=== PATIENT | female | born 2000 | race Two or more races ===

== ENCOUNTER 2025-01-02 15:26 | Emergency (ER) | payer MEDICAID, SELFPAY ==
[2025-01-02 15:27] VITALS: BMI 40.2
[2025-01-02 16:06] VITALS: BP 126/86; PULSE 70; RESP 18; TEMP 37; O2SAT 99
--- NOTE | 2025-01-02 16:33 | EKG_ITS ---
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
--- NOTE | 2025-01-02 16:34 | PD.EDCHEST ---
ED Chest Pain RME/HPI General Chief Complaint: Chest Pain Stated Complaint: Chest pain, left arm tingling since last night Time Seen by Provider: 01/02/25 15:35 Source: patient Arrival date/time: 01/02/25 15:26 24-year-old female with no known medical history presents to the emergency room with a chief complaint of 8 out of 10 sternal chest pain that radiates down her left arm that began yesterday at 9 PM. Mode of arrival: ambulatory Limitations: no limitations Related Data Previous Rx's ?Medication ?Instructions ?Recorded diphenhydramine HCl 25 mg tablet 50 mg (2 x 25 mg) PO Q6H PRN 09/25/22 (Benadryl Allergy) allergy symptoms #30 tabs Allergies Allergy/AdvReac Type Severity Reaction Status Date / Time No Known Allergies Allergy Verified 09/24/22 08:47 Review of Systems Review of Systems Systems Reviewed: All systems reviewed, normal except as documented Constitutional Constitutional: Reports system reviewed and no additional complaints, except as documented, Denies fatigue, Denies fever(s), Denies headache(s) and Denies weakness Eyes Eyes: Reports system reviewed and no additional complaints, except as documented, Denies blurry vision and Denies change in vision ENT Ears, Nose, Mouth, and Throat: Reports system reviewed and no additional complaints, except as documented, Denies otalgia, Denies headache(s), Denies nasal congestion, Denies throat swelling and Denies vertigo Cardiovascular Cardiovascular: Reports system reviewed and no additional complaints, except as documented, Reports chest pain, Reports chest pain at rest, Reports dyspnea and Denies dyspnea on exertion Respiratory Respiratory: Reports system reviewed and no additional complaints, except as documented, Denies chest congestion, Denies cough, Reports dyspnea, Denies dyspnea on exertion and Denies wheezing Gastrointestinal Gastrointestinal: Reports system reviewed and no additional complaints, except as documented, Denies abdominal pain, Denies cramping, Denies nausea and Denies vomiting Genitourinary Genitourinary: Reports system reviewed and no additional complaints, except as documented Musculoskeletal Musculoskeletal: Reports system reviewed and no additional complaints, except as documented and Denies back pain Integumentary/Breasts Skin/Breast: Reports system reviewed and no additional complaints, except as documented and Denies wounds Neurologic Neurologic: Reports system reviewed and no additional complaints, except as documented, Denies confusion, Denies headache(s), Denies lack of coordination, Denies vertigo and Denies weakness Psychiatric Psychiatric: Reports system reviewed and no additional complaints, except as documented, Denies anxiety, Denies confusion, Denies depression, Denies paranoia, Denies suicidal ideation and Denies tactile hallucinations Endocrine Endocrine: Reports system reviewed and no additional complaints, except as documented and Denies fatigue Hematologic/Lymphatic Hematologic/Lymphatic: Reports system reviewed and no additional complaints, except as documented and Denies lymphadenopathy Allergic/Immunologic Allergic/Immunologic: Reports system reviewed and no additional complaints, except as documented, Denies throat swelling, Denies urticaria and Denies wheezing ED Exam General Limitations: Present no limitations General appearance: Present alert and in no apparent distress Head Head exam: Present atraumatic Eye Eye exam: Present normal appearance, PERRL and EOMI ENT ENT exam: Present normal exam, normal oropharynx and mucous membranes moist Neck Neck exam: Present normal inspection, full ROM and trachea midline Chest Chest inspection: Present normal inspection and symmetric chest wall rise Respiratory Respiratory exam: Present normal lung sounds bilaterally Cardiovascular Cardiovascular exam: Present regular rate, normal rhythm, normal heart sounds, +S1 and +S2; Absent bradycardia, tachycardia, irregular rhythm, systolic murmur, diastolic murmur, rubs, gallop, clicks or JVD Abdominal Exam Abdominal exam: Present soft and normal bowel sounds Extremities Exam Extremities exam: Present normal inspection and full ROM Back Exam Back exam: Present normal inspection and full ROM Neurological Exam Neurological exam: Present alert, oriented X3 and CN II-XII intact Psychiatric Psychiatric exam: Present normal affect and normal mood Skin Skin exam: Present warm, dry, intact and normal color Course Orders Category Date Time Status EKG (ED ONLY) *Do not use* NOW Care 01/02/25 16:33 Ordered EKG (ED Only) Stat Exams 01/02/25 16:33 Ordered B-Type Natriuretic Peptide Stat Lab 01/02/25 16:33 Ordered CBC Stat Lab 01/02/25 16:33 Ordered Comprehensive Metabolic Panel Stat Lab 01/02/25 16:33 Ordered Troponin I Stat Lab 01/02/25 16:33 Ordered Vital Signs Vital signs: Vital Signs Temperature 98.6 F 01/02/25 16:06 Pulse Rate 70 01/02/25 16:06 Respiratory Rate 18 01/02/25 16:06 Blood Pressure 126/86 H 01/02/25 16:06 Pulse Oximetry (%) 99 01/02/25 16:06 Oxygen Delivery Method Room Air 01/02/25 16:06 Chest Pain MDM Narrative MDM Narrative:: 24-year-old female with no known medical history presents to the emergency room with a chief complaint of 8 out of 10 sternal chest pain that radiates down her left arm that began yesterday at 9 PM. Discharge Plan Prescriptions/Referrals Prescriptions/Med Rec: No Action diphenhydramine HCl [Benadryl Allergy] 25 mg tablet 50 mg PO Q6H PRN (Reason: allergy symptoms) Qty: 30 0RF Patient/Caregiver Discharge Instructions Print Language: Maori
[2025-01-02 17:32] LABS: Basophils # (Auto) 0.1 Thou/mm3 (0.0-0.2); Basophils % (Auto) 1 % (0-2.5); Eosinophils # (Auto) 0.1 Thou/mm3 (0.0-0.5); Eosinophils % (Auto) 2 % (0-10); Hematocrit 40.1 % (36.0-46.0); Hemoglobin 13.5 g/dL (12.0-16.0); Immature Granulocytes % (Auto) 0 % (0-0); Immature Granulocytes Auto 0.03 Thou/mm3 (0.00-0.00); Lymphocytes # (Auto) 2.2 Thou/mm3 (1.0-4.8); Lymphocytes % (Auto) 25 % (10-50); Mean Corpuscular HGB Conc 33.7 g/dl (31.0-37.0); Mean Corpuscular Hemoglobin 28.2 pg (25.0-35.0); Mean Corpuscular Volume 84 fL (80-100); Monocytes # (Auto) 0.5 Thou/mm3 (0.0-0.8); Monocytes % (Auto) 6 % (0-12); Neutrophils # (Auto) 5.8 Thou/mm3 (1.8-7.7); Neutrophils % (Auto) 67 % (37-80); Nucleated Red Blood Cell % 0 /100 WBC (0); Platelet Count 255 Thou/mm3 (140-440); RDW Standard Deviation 39.5 fL (36.4-46.3); Red Blood Count 4.79 Miln/mm3 (4.00-5.20); White Blood Count 8.7 Thou/mm3 (3.6-11.0)
[2025-01-02 17:57] LABS: B-Type Natriuretic Peptide < 20 pg/mL (0-100)
[2025-01-02 18:00] LABS: Alanine Aminotransferase 16 U/L (10-49); Albumin, Serum 4.9 gm/dL (3.5-5.0); Alkaline Phosphatase 94 U/L (46-116); Anion Gap 8 (7-16); Aspartate Amino Transferase 21 U/L (0-34); BUN/Creatinine Ratio 9 Ratio (12-20); Bilirubin,Total 0.4 mg/dL (0.3-1.2); Blood Urea Nitrogen 6 mg/dL (9-23); Calcium 9.6 mg/dL (8.3-10.6); Calcium (Corrected) 9.6 mg/dL (8.5-10.1); Carbon Dioxide 25.3 mMol/L (20.0-31.0); Chloride 108 mMol/L (98-107); Creatinine (Component) 0.7 mg/dL (0.6-1.3); Estimated Creatinine Clearance 139.3 mL/min (>60); Globulin 2.5 gm/dL (2.3-3.5); Glucose 85 mg/dL (74-106); Osmolality,Calculated 277 (275-295); Potassium 4.1 mMol/L (3.4-5.1); Sodium 141 mMol/L (136-145); Total Protein 7.4 gm/dL (5.7-8.2); Troponin I < 0.002 ng/mL (0.0-0.045); eGFR > 60 See Note
--- NOTE | 2025-01-02 18:01 | PD.EDRME ---
Rapid Medical Screening Exam [facility] Arrival date/time: 01/02/25 15:26 24-year-old female with no known medical history presents to the emergency room with a chief complaint of 8 out of 10 sternal chest pain that radiates down her left arm that began yesterday at 9 PM. I have greeted and performed a focused initial assessment of this patient. A comprehensive ED assessment and evaluation of the patient, analysis of all test results, and completion of the medical decision making process will be conducted by additional ED providers. Chief Complaint: Chest Pain Time Seen by Provider: 01/02/25 15:35 Vital signs: Vital Signs Temperature 98.6 F 01/02/25 16:06 Pulse Rate 70 01/02/25 16:06 Respiratory Rate 18 01/02/25 16:06 Blood Pressure 126/86 H 01/02/25 16:06 Pulse Oximetry (%) 99 01/02/25 16:06 Oxygen Delivery Method Room Air 01/02/25 16:06 Vital signs reviewed by provider: Yes
--- NOTE | 2025-01-02 19:35 | PD.EDCHEST ---
ED Chest Pain RME/HPI General Chief Complaint: Chest Pain Stated Complaint: Chest pain, left arm tingling since last night Time Seen by Provider: 01/02/25 15:35 Arrival date/time: 01/02/25 15:26 RME / HPI RME / HPI narrative: 01/02/25 15:26 24-year-old female with no known medical history presents to the emergency room with a chief complaint of 8 out of 10 sternal chest pain that radiates down her left arm that began yesterday at 9 PM. I have greeted and performed a focused initial assessment of this patient. A comprehensive ED assessment and evaluation of the patient, analysis of all test results, and completion of the medical decision making process will be conducted by additional ED providers. DR CEDENO MAIN ED EVALUATION: 24 yo female patient c/o anterior chest pain radiating across her chest. Had some mild associated dyspnea while trying to sleep last night. Denies cough, nausea, sweats, fever. Did not try any medications. Noticed anterior chest wall soreness when in the shower this morning. Left work today to come for evaluation. No known cardiac history. Related Data Previous Rx's ?Medication ?Instructions ?Recorded diphenhydramine HCl 25 mg tablet 50 mg (2 x 25 mg) PO Q6H PRN 09/25/22 (Benadryl Allergy) allergy symptoms #30 tabs Allergies Allergy/AdvReac Type Severity Reaction Status Date / Time No Known Allergies Allergy Verified 09/24/22 08:47 Review of Systems Review of Systems Systems Reviewed: All systems reviewed, normal except as documented ED Exam Narrative Physical exam: GENERAL APPEARANCE: alert and oriented x 4, well-developed, well-nourished, no acute distress HEENT: Normocephalic, atraumatic; pupils equal, round, reactive to light; EOMI; mucous membranes pink, moist; oropharynx clear NECK: Supple LUNGS: CTABL; no wheezes, no rales, no rhonchi HEART: Regular rate, regular rhythm with occasional irregularity most consistent with PVC; normal S1, S2; no murmurs; minimal anterior chest wall tenderness ABDOMEN: non distended; normal BS; soft, no tenderness, no guarding, no rebound; no masses, no organomegaly, no hernia BACK: no CVA tenderness EXTREMITIES: atraumatic; no edema NEUROLOGIC: awake; alert and oriented x4; cranial nerves II-XII grossly intact; no focal sensory or motor deficits PSYCHIATRIC: appropriate mood and affect SKIN: warm, dry, normal color; no rashes Course Quality Measures none Orders Category Date Time Status EKG (ED ONLY) *Do not use* NOW Care 01/02/25 16:33 Completed EKG (ED Only) Stat Exams 01/02/25 16:33 Draft B-Type Natriuretic Peptide Stat Lab 01/02/25 17:03 Completed CBC Stat Lab 01/02/25 17:03 Completed Comprehensive Metabolic Panel Stat Lab 01/02/25 17:03 Completed Troponin I Stat Lab 01/02/25 17:03 Completed Ibuprofen Tab [Motrin Tab] Med 01/02/25 19:37 Once 600 mg PO X1 ONE Vital Signs Vital signs: Vital Signs Temperature 98.6 F 01/02/25 16:06 Pulse Rate 70 01/02/25 16:06 Respiratory Rate 18 01/02/25 16:06 Blood Pressure 126/86 H 01/02/25 16:06 Pulse Oximetry (%) 99 01/02/25 16:06 Oxygen Delivery Method Room Air 01/02/25 16:06 Chest Pain Patient data External records reviewed:: [facility] previous records Clinical information provided by:: patient Social determinants that could affect healthcare access:: none Patient has the following chronic illnesses:: none How is presenting disease/condition affected by chronic disease/condition?: no chronic disease Evaluation data The following diagnostics were reviewed and interpreted by me:: lab results, radiology exam(s) and EKG tracing(s) Lab and/or radiology exams considered but not ordered:: none Interpretation Summary: lab results and EKG within normal limits Medications / Prescriptions Medications or Prescriptions considered but not ordered:: none Medication administrations:: Medication Administration History Discontinued Medications Ibuprofen (Ibuprofen Tab 600 Mg Tablet) 600 mg PO X1 ONE Stop: 01/02/25 19:38 as above Consultations Consultation(s) initiated? (list below): No Diagnosis Chest Pain Differential Diagnosis: pneumothorax, stable angina, unstable angina pectoris, atypical chest pain, st elevation myocardial infarction and costochondritis Most likely diagnosis given after review of the tests above:: atypical chest pain Admission Indicated Admission indicated?: not indicated Admission Request Was there a request for admission?: No Disposition Plan Disposition Plan: Discharge Discharge Attestation Discharge Attestation: The patient and all family members were given an opportunity to ask questions and understood the discharge instructions. Discharge instructions specifically effects, indications for sooner follow up or return to the emergency department, and the expected course of current diagnosis. Patient condition: Stable Discharge Plan Plan Patient Disposition: HOME (Self Care) Prescriptions/Referrals Prescriptions/Med Rec: No Action diphenhydramine HCl [Benadryl Allergy] 25 mg tablet 50 mg PO Q6H PRN (Reason: allergy symptoms) Qty: 30 0RF Referrals: No Primary/Family,Physician [Primary Care Provider] - In 1 week Problem List Clinical Impression: Atypical chest pain Patient/Caregiver Discharge Instructions Education Materials: ED Chest Pain, Uncertain Cause Print Language: Portuguese Stand Alone Forms: [employer] Award Info., Work/School Release, Patient Portal Info Letter
[2025-01-02] MEDS: IBUPROFEN TAB 600 MG TABLET PO (19:45)
== END 2025-01-02 20:06 | disposition home or self-care (01) ==
PROVIDERS: Nurse Practitioner Family; Emergency Provider Emergency Medicine
DX: R07.89 Other chest pain (principal)
CPT/HCPCS: 36415; 80053; 83880; 84484; 85025; 93005; 99283; A9270

== ENCOUNTER 2025-04-29 09:22 | Emergency (ER) | payer MEDICAID, SELFPAY ==
[2025-04-29 09:53] VITALS: BP 122/75; PULSE 67; RESP 18; TEMP 37.2; O2SAT 97; BMI 40.2
--- NOTE | 2025-04-29 10:09 | PD.EDUPEX ---
Upper Extremity Injury RME/HPI General Chief Complaint: Extremity Injury, Upper Stated Complaint: Right shoulder pain X 3 days Time Seen by Provider: 04/29/25 09:51 Arrival date/time: 04/29/25 09:22 This is a 24-year-old female that comes into the emergency room with complaints of low right lateral neck pain some posterior shoulder pain to the right side. Patient denies any trauma. Patient denies any numbness tingling. Patient denies any other symptoms. Patient states she thought she slept wrong but it continued for 3 days so she wanted to be evaluated. Patient denies any past medical history. Related Data Previous Rx's ?Medication ?Instructions ?Recorded diphenhydramine HCl 25 mg tablet 50 mg (2 x 25 mg) PO Q6H PRN 09/25/22 (Benadryl Allergy) allergy symptoms #30 tabs cyclobenzaprine 10 mg tablet 10 mg PO TID PRN muscle spasm #14 04/29/25 tabs ibuprofen 800 mg tablet 800 mg PO Q6H PRN pain #14 tabs 04/29/25 Allergies Allergy/AdvReac Type Severity Reaction Status Date / Time No Known Allergies Allergy Verified 04/29/25 09:27 Course Vital Signs Vital signs: Vital Signs Temperature 99.0 F 04/29/25 09:53 Pulse Rate 67 04/29/25 09:53 Respiratory Rate 18 04/29/25 09:53 Blood Pressure 122/75 04/29/25 09:53 Pulse Oximetry (%) 97 04/29/25 09:53 Oxygen Delivery Method Room Air 04/29/25 09:53 Extremity Injury MDM Narrative MDM Narrative:: Patient took ibuprofen prior to arrival. Will treat with Tylenol and Flexeril. Will treat for muscle tension. Patient told to follow-up with primary provider in 1 to 2 days. Come back to the emergency room symptoms change or worsen. Patient told to rest ice area. Discharge Plan Plan Patient Disposition: HOME (Self Care) Patient condition on transfer: Stable Prescriptions/Referrals Prescriptions/Med Rec: New ibuprofen 800 mg tablet 800 mg PO Q6H PRN (Reason: pain) Qty: 14 0RF cyclobenzaprine 10 mg tablet 10 mg PO TID PRN (Reason: muscle spasm) Qty: 14 0RF No Action diphenhydramine HCl [Benadryl Allergy] 25 mg tablet 50 mg PO Q6H PRN (Reason: allergy symptoms) Qty: 30 0RF Problem List Clinical Impression: Neck pain, Muscle pain Patient/Caregiver Discharge Instructions Discharge Activity: activity as tolerated Education Materials: ED Neck Pain Additional Instructions: Follow up with primary provider in 1-2 days. Come back to ED if symptoms change or worsen Print Language: Burmese Stand Alone Forms: [employer] Award Info., Patient Portal Info Letter PA/SCHOOL BUS DRIVER/TEACHER ASSISTANT Supervising Physician PA/SCHOOL BUS DRIVER/TEACHER ASSISTANT Supervising Physician: cher
[2025-04-29] MEDS: ACETAMINOPHEN 500 MG TABLET 1000 MG PO (10:16)
== END 2025-04-29 10:22 | disposition home or self-care (01) ==
LOC: SERX 10:34
PROVIDERS: Emergency Provider Emergency Medicine
DX: M54.2 Cervicalgia (principal); M79.18 Myalgia, other site
CPT/HCPCS: 99282; A9270